=== PATIENT | female | born 1975 | race African-American/Black ===

== ENCOUNTER 2019-05-18 23:09 | Emergency (ER) | payer OTHER ==
[2019-05-18 23:46] VITALS: BP 197/93; PULSE 107; TEMP 98.7; BMI 35.9
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
[2019-05-19] MEDS ORDERED: IBUPROFEN 400 MG TABLET (FP) PO ONE ×2 (00:42→00:47)
[2019-05-19] MEDS ORDERED: CYCLOBENZAPRINE HCL 5 MG TABLET PO STA (00:42)
[2019-05-19] MEDS ORDERED: LIDOCAINE 5% TOPICAL PATCH TP ONE (00:43)
[2019-05-19] MEDS ORDERED: LIDOCAINE 5% TOPICAL PATCH ONE (00:47)
[2019-05-19] MEDS ORDERED: CYCLOBENZAPRINE HCL 10 MG TABLET (FP) ONE (00:47)
[2019-05-19] MEDS ORDERED: LIDOCAINE PATCH REMOVAL MC SCH (22:00)
== END 2019-05-19 01:47 | disposition home or self-care (01) ==
LOC: JER 23:09
CPT/HCPCS: 73564-TC-LT-FY; 73590-TC-LT-FY; 84703; 99282-25